=== PATIENT | female | born 1965 | race Caucasian/White ===

== ENCOUNTER 2017-06-02 17:28 | Emergency (ER) | payer SELFPAY ==
[2017-06-02 17:38] VITALS: BMI 23.1
--- NOTE | 2017-06-02 18:00 | ED.ABDFE ---
HPI - Time seen Time seen: 17:50 - PCP Primary Care Physician: JANEEN CROSS - HPI Comment HPI Comment: HISTORY BELOW. - Complaint Chief Complaint Doctors Comments: RLQABDOMINAL PAIN THAT STARTED FROM RT FLANK AREA TIMES 3 DAYS. PAIN ASSOCIATED WITH NAUSEA. NO FEVER. WORSE TODAY. Chief Complaint:: PT C/O RIGHT LOWER QUAD PAIN THATS RADIATES TO HER BACK AND HIP ,,, PT DENIES ANY TRAUMA.. PT C/O PAIN STARTED ON THURSDAY NIGHT AND THAT SHE TOOK A PERCOCET ADN IT DID NOT HELP ANY,,BR - Nurses notes reviewed Nurses Notes Review: Yes - Source History Provided: Patient - Mode of arrival Mode of Arrival: Ambulatory - Timing Onset of Chief Complaint: 05/30/17 Came on: Suddenly - Duration Duration: Constant Duration: Days - Location Location: RLQ - Severity Severity: Moderate - Quality Quality: Cramping - Context Onset: Suddenly History of: None - Modifying Worsening Factors: Nothing Improving Factors: Nothing - Associated signs and symptoms Associated Signs and Symptoms: Nausea PMH - PMH Past Medical History: Yes Past Medical History: Hypertension Past Surgical History: Yes Past Surgical History Comment: TUBAL, AND D& C - Family History History of Family Medical Conditions: Yes Family Medical History: Diabetes Mellitus, [place], Hypertension - Social History Does patient currently use any type of tobacco product: Yes Have you used tobacco products in the last 12 months: Yes Type of Tobacco Use: None How many years tobacco product used: 42 Does any household member use tobacco: No Alcohol Use: None Do you use any recreational Drugs:: No Lives With: Family Lives Where: Home - infectious screening In the last 2 months have you had wt loss of >10#?: NO Have you had fever, night sweats or hemotysis?: No Have you traveled outside the country in the last 6 months?: No Isolation: Standard ROS - Review of Systems Constitutional: Weakness, Fatigue. negative: Chills, Fever Eyes: No Symptoms Reported. negative: Eye Pain, Discharge ENTM: No Symptoms Reported. negative: Ear Pain, Nose Discharge, Nose Congestion , Throat Pain Respiratoy: No Symptoms Reported. negative: Productive Cough, Non-Productive Cough, Short of Breath, Wheezing, Hemoptysis Cardiovascular: No Symptoms Reported. negative: Chest Pain Gastrointestinal/Abdominal: Abdominal Pain, Nausea Genitourinary: No Symptoms Reported. negative: Dysuria, Frequency, Hematuria Neurological: Weakness, Dizziness. negative: Headache Musculoskeletal: Other (RIGHT FLANK PAIN) Integumentary: No Symptoms Reported Hematologic/Lymphatic: No Symptoms Reported Endocrine: No Symptoms Reported All Other Systems: Reviewed and Negative PE - Vital Signs Vitals: Temperature 97.7 F Pulse Rate 99 Respiratory Rate 18 Blood Pressure [Left Arm] 148/77 Blood Pressure 226/105 O2 Sat by Pulse Oximetry 103 - General Limitations: No Limitations General Appearance: Alert - Head Head Exam: Normal Inspection - Eyes Eye exam: Normal Appearance - ENT ENT Exam: Normal External Ear Exam - Neck Neck Exam: Normal Inspection - Chest Chest Inspection: Symmetric Chest Wall Rise - Respiratory Respiratory Exam: Normal Lung Sounds Bilat Respiratory Exam: Bilateral Clear to Auscultation - Cardiovascular Cardiovascular Exam: Regular Rate, Normal Rhythm, Normal Heart Sounds - Abdominal Exam Abdominal Exam: Normal Bowel Sounds, Soft, Tenderness Abdominal Tenderness: RLQ, Suprapubic, Moderate - Rectal Rectal Exam: Deferred - Back Back Exam: (R) CVA Tenderness - Extremeties Extremities Exam: Normal Inspection - External Exam: Female: Deferred : Speculum Exam (Female): Deferred : Bimanual Exam (female): Deferred - Neurologic Neurological Exam: Alert, Oriented X3 - Psychiatric Psychiatric Exam: Normal Affect, Normal Mood - Skin Skin Exam: Normal Color MDM - Differential Diagnosis Differential Diagnosis- Considerations may include:: Bowel Obstruction, Diverticular disease, Gastritus/PUD, Pancreatitis, Urinary tract infection, Urolithiasis Course - Treatment Treatment: SEE ORDERS. - Education/Counseling Education/Counseling: Patient, Family, Education Educated On: Diagnosis, Needs for Follow Up ROR - Labs Reviewed Laboratory Results Reviewed?: Yes Result Diagrams: 06/02/17 18:07 06/02/17 18:07 Laboratory: WBC 12.0 X10^3/uL (3.6-10.0) H 06/02/17 18:07 RBC 3.94 X10^6/uL (3.5-5.4) 06/02/17 18:07 Hgb 12.2 g/dL (12.0-16.0) 06/02/17 18:07 Hct 35.3 % (36.0-47.0) L 06/02/17 18:07 MCV 89.6 fL (80.0-100.0) 06/02/17 18:07 MCH 30.9 pg (27.0-34.0) 06/02/17 18:07 MCHC 34.5 g/dL (33.0-35.0) 06/02/17 18:07 RDW 13.4 % (11.6-16.5) 06/02/17 18:07 Plt Count 264 X10^3/uL (150.0-450.0) 06/02/17 18:07 MPV 8.0 fL (7.4-11.0) 06/02/17 18:07 Neut % (Auto) 67.8 % (42.0-75.0) 06/02/17 18:07 Lymph % (Auto) 21.8 % (21.0-51.0) 06/02/17 18:07 [place] % (Auto) 8.6 % (0.0-13.0) 06/02/17 18:07 Eos % (Auto) 1.1 % (0.9-2.9) 06/02/17 18:07 Baso % (Auto) 0.7 % (0.2-1.0) 06/02/17 18:07 Neut # (Auto) 8.1 x10^3/uL (2.2-4.8) H 06/02/17 18:07 Lymph # (Auto) 2.6 X10^3/uL (1.3-2.9) 06/02/17 18:07 [place] # (Auto) 1.0 x10^3/uL (0.3-0.8) H 06/02/17 18:07 Eos # (Auto) 0.1 x10^3/uL (0.0-0.2) 06/02/17 18:07 Baso # (Auto) 0.1 X10^3/uL (0.0-0.1) 06/02/17 18:07 Absolute Nucleated RBC 0.0 /100WBC 06/02/17 18:07 Sodium 142 mmol/L (136-145) 06/02/17 18:07 Corrected Sodium 142 mmol/L (136-145) 06/02/17 18:07 Potassium 3.1 mmol/L (3.5-5.1) L 06/02/17 18:07 Chloride 106 mmol/L (98-107) 04/03/18 18:07 Carbon Dioxide 28.6 mmol/L (21-32) 06/02/17 18:07 BUN 12 mg/dL (7-18) 06/02/17 18:07 Creatinine 0.82 mg/dL (0.55-1.02) 06/02/17 18:07 Est GFR (MDRD) Af Amer > 60 (>60) 06/02/17 18:07 Est GFR (MDRD) Non-Af > 60 (>60) 06/02/17 18:07 Glucose 117 mg/dL (65-99) H 06/02/17 18:07 Calcium 8.3 mg/dL (8.5-10.1) L 06/02/17 18:07 Corrected Calcium 8.9 mg/dL (8.5-10.1) 06/02/17 18:07 Total Bilirubin 0.20 mg/dL (0.2-1.0) 06/02/17 18:07 AST 9 Units/L (15-37) L 06/02/17 18:07 ALT 21 Units/L (12-78) 06/02/17 18:07 Alkaline Phosphatase 76 Units/L (46-116) 06/02/17 18:07 Total Protein 6.8 g/dL (6.4-8.2) 06/02/17 18:07 Albumin 3.3 g/dL (3.4-5.0) L 06/02/17 18:07 Globulin 3.5 g/dL (2.5-4.5) 06/02/17 18:07 Albumin/Globulin Ratio 0.9 Ratio (1.1-2.1) L 06/02/17 18:07 Amylase 42 Units/L (25-115) 06/02/17 18:07 Lipase 133 Units/L (73-393) 06/02/17 18:07 Specimen Type Clean catch urine 06/02/17 18:48 Urine Color Yellow (YELLOW) 06/02/17 18:48 Urine Appearance Slightly hazy (CLEAR) 06/02/17 18:48 Urine pH 6.0 (5.0 - 8.0) 06/02/17 18:48 Ur Specific [place] 1.020 (1.000-1.030) 06/02/17 18:48 Urine Protein Negative (NEGATIVE) 06/02/17 18:48 Urine Glucose (UA) Negative (NEGATIVE) 06/02/17 18:48 Urine Ketones Negative (NEGATIVE) 06/02/17 18:48 Urine Occult Blood 4+ (NEGATIVE) 06/02/17 18:48 Urine Nitrite Negative (NEGATIVE) 06/02/17 18:48 Urine Bilirubin Negative (NEGATIVE) 06/02/17 18:48 Urine Urobilinogen Normal (NORMAL) 06/02/17 18:48 Ur Leukocyte Esterase 1+ (NEGATIVE) 06/02/17 18:48 Urine RBC 5-10 /HPF (NONE SEEN) 06/02/17 18:48 Urine WBC 0-2 /HPF (NONE SEEN) 06/02/17 18:48 Ur Squamous Epith Cells Numerous /HPF (NEGATIVE) 06/02/17 18:48 Amorphous Sediment 1+ /HPF (NEGATIVE) 06/02/17 18:48 Urine Bacteria Trace /HPF (NEGATIVE) 06/02/17 18:48 Ur Culture Indicated? No/not indicated 06/02/17 18:48 - XRAY XRAY Findings: REPORT DISCUSS WITH PATIENT AND HER FAMILY. - Diagnosis Discharge Problem: Abdominal pain Qualifiers: Abdominal location: right lower quadrant Qualified Code(s): R10.31 - Right lower quadrant pain - Discharge Plan Disposition: 01 HOME, SELF-CARE Condition: Stable Prescriptions: Hydrochlorothiazide [Hydrochlorothiazide 25 mg Tab] 25 mg PO QAM #30 tab Ondansetron [Zofran ODT 8 mg] 8 mg PO Q8H PRN #12 tab PRN Reason: Nausea/Vomiting - Follow ups/Referrals Follow ups/Referrals: ARTUR SALAS [Primary Care Provider] - 1 day - Instructions Instructions: Abdominal Pain, Adult, [id number], Flank Pain, Adult, Easy-to- Read Additional Instructions: RETURN TO ED IF WORSE.
[2017-06-02 18:16] LABS: BASOPHILS # (AUTO) 0.1 X10^3/uL (0.0-0.1); BASOPHILS % (AUTO) 0.7 % (0.2-1.0); EOSINOPHILS # (AUTO) 0.1 x10^3/uL (0.0-0.2); EOSINOPHILS % (AUTO) 1.1 % (0.9-2.9); HEMATOCRIT 35.3 % (36.0-47.0); HEMOGLOBIN 12.2 g/dL (12.0-16.0); LYMPHOCYTES # (AUTO) 2.6 X10^3/uL (1.3-2.9); LYMPHOCYTES % (AUTO) 21.8 % (21.0-51.0); MEAN CORPUSCULAR HEMOGLOBIN 30.9 pg (27.0-34.0); MEAN CORPUSCULAR HGB CONC 34.5 g/dL (33.0-35.0); MEAN CORPUSCULAR VOLUME 89.6 fL (80.0-100.0); MONOCYTES % (AUTO) 8.6 % (0.0-13.0); NEUTROPHILS # (AUTO) 8.1 x10^3/uL (2.2-4.8); NEUTROPHILS % (AUTO) 67.8 % (42.0-75.0); PLATELET COUNT 264 X10^3/uL (150.0-450.0); RED BLOOD COUNT 3.94 X10^6/uL (3.5-5.4); RED CELL DISTRIBUTION WIDTH 13.4 % (11.6-16.5)
[2017-06-02 18:23] LABS: BLOOD UREA NITROGEN 12 mg/dL (7-18); CALCIUM 8.3 mg/dL (8.5-10.1); CARBON DIOXIDE 28.6 mmol/L (21-32); CHLORIDE 106 mmol/L (98-107); COR NA(FOR HYPERGLY) 142 mmol/L (136-145); CREATININE 0.82 mg/dL (0.55-1.02); SODIUM 142 mmol/L (136-145); eGFR BLACK RACES > 60 (>60); eGFR NON BLACK RACES > 60 (>60)
[2017-06-02 18:27] LABS: ALANINE AMINOTRANSFERASE 21 Units/L (12-78); ALBUMIN 3.3 g/dL (3.4-5.0); ALKALINE PHOSPHATASE 76 Units/L (46-116); AMYLASE 42 Units/L (25-115); ASPARTATE AMINO TRANSFERASE 9 Units/L (15-37); COR CA(FOR HYPOALB) 8.9 mg/dL (8.5-10.1); LIPASE 133 Units/L (73-393); TOTAL PROTEIN 6.8 g/dL (6.4-8.2)
[2017-06-02] MEDS ORDERED: DEMEROL INJ IVP ONE (18:44)
[2017-06-02] MEDS ORDERED: ZOFRAN INJ 4 MG VIAL IVP ONE (18:44)
[2017-06-02] MEDS ORDERED: NIFEDIPINE CAP 10 MG PO ONE (18:44)
[2017-06-02] MEDS ORDERED: NS 1000 ML 1,000 ML ONE (18:49)
[2017-06-02] MEDS ORDERED: ZOFRAN INJ 4 MG VIAL ONE (18:49)
[2017-06-02] MEDS ORDERED: NIFEDIPINE CAP 10 MG ONE (18:50)
[2017-06-02] MEDS ORDERED: DEMEROL INJ ONE (18:50)
--- NOTE | 2017-06-02 18:55 | CT ---
HISTORY: Right flank pain. Study: CT abdomen and pelvis without contrast Comparison: None. Technique: Multiple axial images of the abdomen and pelvis were obtained from the lung bases to the pubic symphy sis without the administration of IV contrast. Dose reduction techniques including Automated Exposur e Control (AEC) and adjustment of mA and kV were utilized. Findings: Limited study secondary to lack of IV and oral contrast. The visualized portions of the lung bases are unremarkable. The liver, spleen, pancreas, kidneys, an d adrenal glands are unremarkable in their CT appearance. Stones versus sludge are seen within a cont racted gallbladder. No secondary signs to suggest acute cholecystitis. No significant mesenteric lymp hadenopathy or stranding can be observed. No free fluid or free air is seen within the abdomen. Beltran ited evaluation of the large and small bowel secondary to collapse and lack of oral contrast. Scatter ed colonic diverticulum without evidence of diverticulitis. The large and small bowel are otherwise u nremarkable. The appendix appears normal. The uterus is unremarkable. No obvious adnexal lesion. Trac e free fluid within the dependent pelvis that is likely physiologic. Scattered vascular calcification s without evidence of aneurysmal dilatation. The urinary bladder is grossly unremarkable. The bony s tructures are grossly intact. IMPRESSION: No CT evidence of acute abdominal/pelvic pathology. Reported By:
[2017-06-02] MEDS ORDERED: NS 1000 ML 1,000 ML IV SCH (19:00)
[2017-06-02 19:04] LABS: BILIRUBIN,URINE NEGATIVE (NEGATIVE); BLOOD/HEMOGLOBIN,URINE 4+ (NEGATIVE); GLUCOSE, URINE NEGATIVE (NEGATIVE); KETONES,URINE NEGATIVE (NEGATIVE); LEUKOCYTE ESTERASE ,URINE 1+ (NEGATIVE); NITRITES,URINE NEGATIVE (NEGATIVE); PROTEIN,URINE NEGATIVE (NEGATIVE); UROBILINOGEN,URINE NORMAL (NORMAL)
[2017-06-02 19:25] LABS: APPEARANCE,URINE SLIGHTLY HAZY (CLEAR); COLOR,URINE YELLOW (YELLOW)
[2017-06-02 19:26] LABS: AMORPHOUS SEDIMENT,UR 1+ /HPF (NEGATIVE); BACTERIA,URINE TRACE /HPF (NEGATIVE); SQUAMOUS EPITHELIAL CELL,UR NUMEROUS /HPF (NEGATIVE)
[2017-06-02 20:07] VITALS: BP 148/77
== END 2017-06-02 20:11 | disposition home or self-care (01) ==
LOC: ER 17:39
DX: R10.31 Right lower quadrant pain (principal)
CPT/HCPCS: 36415; 74176; 80053; 81001; 82150; 83690; 85025; 96365; 96367; 96374; 96375; 99282; 99283; A4222; J2175; J2405